=== PATIENT | male | born 1955 | race Caucasian/White ===

== ENCOUNTER 2017-07-31 11:40 | Emergency (ER) | payer SELFPAY ==
[~2017-07-31] VITALS: Ht 188 cm; Wt 124.7 kg
[2017-07-31] MEDS ORDERED: OXYCODONE/APAP 5-325 MG TABLET ONE (12:57)
[2017-07-31] MEDS ORDERED: KETOROLAC TROMETHAMINE 15 MG INJ ONE (12:57)
[2017-07-31] MEDS ORDERED: KETOROLAC TROMETHAMINE 15 MG INJ IM ONE (13:00)
[2017-07-31] MEDS ORDERED: OXYCODONE/APAP 5-325 MG TABLET PO ONE (13:00)
--- NOTE | 2017-07-31 13:08 | NUR ---
PATIENT WAS SEEN BY MD FOR PAIN WHICH PATIENT STATES IS CHRONIC. MEDICATIONS GIVEN ORDERED. DC, RX (INCLUDING PRECAUTIONS) AND FOLLOW UP INSTRUCTIONS GIVEN AND EXPLAINED TO PATIENT WHO STATES HE UNDERSTANDS ALL INSTRUCTIONS.
== END 2017-07-31 13:09 | disposition home or self-care (01) ==
LOC: ER 11:40
DX: G89.29 Other chronic pain (principal); M25.511 Pain in right shoulder; M25.512 Pain in left shoulder; Z88.5 Allergy status to narcotic agent
CPT/HCPCS: 96372; 99283; A4663; J1885